=== PATIENT | female | born 1965 | race Caucasian/White ===

== ENCOUNTER 2016-08-12 15:14 | Emergency (ER) | payer MEDICARE, OTHER ==
[2016-08-12] MEDS ORDERED: DIATRIZOATE MEGLU/DIATRIZO SOD 30 ML BTL PO ONE (15:51)
[2016-08-12] MEDS ORDERED: DIATRIZOATE MEGLU/DIATRIZO SOD 30 ML BTL ONE (15:52)
--- NOTE | 2016-08-12 15:58 | ERNOTE ---
Medical Problem HPI - General Chief Complaint: Nausea/Vomiting Time Seen by Provider: 08/12/16 15:39 Source: patient, other - Immun/Allergies/Home Medications Immunizations: IMMUNIZATION HX Immunizations Up to Date Yes History of Influenza Vaccine Yes Hx Pneumococcal Vaccination Yes Allergies/Adverse Reactions: Allergies haloperidol Adverse Reaction (Severe, Verified 08/12/16 15:32) Other Home Medications: HOME MEDICATIONS Acetaminophen [Tylenol Extra Strength] 650 mg PO TID PRN 07/04/13 [Last Taken Unknown] Budesonide/Formoterol Fumarate [Symbicort 80-4.5 Mcg Inhaler] 2 puff IH BID [Last Taken 07/04/13] Omeprazole 20 mg PO DAILY 07/04/13 [Last Taken Unknown] Levothyroxine Sodium [Synthroid] 150 mcg PO DAILY@0700 #0 tablet 07/12/13 [Last Taken Unknown] Loratadine [Claritin] 10 mg PO DAILY #0 tablet 07/12/13 [Last Taken Unknown] Lurasidone HCl [Latuda] 120 mg PO DAILY #0 tablet 07/12/13 [Last Taken Unknown] Montelukast Sodium [Singulair] 10 mg PO DAILY #0 tablet 07/12/13 [Last Taken Unknown] Simvastatin [Zocor] 20 mg PO HS #0 tablet 07/12/13 [Last Taken Unknown] Carvedilol [Coreg] 25 mg PO BID 12/17/14 [Last Taken Unknown] Fluticasone Propionate [Flonase] 2 spray NS DAILY 12/17/14 [Last Taken Unknown] lamoTRIgine [Lamictal] 150 mg PO DAILY 12/17/14 [Last Taken Unknown] Acetaminophen [Tylenol] 650 mg PO Q4H PRN 01/22/15 [Last Taken Unknown] Cyclobenzaprine HCl 10 mg PO TID PRN 01/22/15 [Last Taken Unknown] Docusate Sodium [Colace] 100 mg PO BID PRN 01/22/15 [Last Taken Unknown] Fluticasone/Salmeterol [Advair 250-50 Diskus] 1 puff IH BID 01/22/15 [Last Taken Unknown] Ibuprofen [Motrin] 600 mg PO Q6H PRN 01/22/15 [Last Taken Unknown] Jantoven 4 mg PO SUTUWETHSA 01/22/15 [Last Taken Unknown] Jantoven 8 mg PO MOFR 01/22/15 [Last Taken Unknown] Jantoven 9 mg PO MOFR 01/22/15 [Last Taken Unknown] Abrams Carbonate 300 mg PO BID 01/22/15 [Last Taken Unknown] Lorazepam [Ativan] 2 mg PO QID PRN 01/22/15 [Last Taken Unknown] Magnesium Hydroxide [Milk Of Magnesia] 30 ml PO HS PRN 01/22/15 [Last Taken Unknown] Mometasone Furoate [Elocon] 15 gm TP BID PRN 01/22/15 [Last Taken Unknown] Ondansetron HCl [Zofran] 8 mg PO Q6H PRN 01/22/15 [Last Taken Unknown] Polyethylene Glycol 3350 [Miralax] 17 gm PO DAILY PRN 01/22/15 [Last Taken Unknown] Simethicone [Mylicon Chewable Tablets] 80 mg PO DAILY PRN 01/22/15 [Last Taken Unknown] Sodium Chloride [Valencia] 1 ml NS PRN PRN 01/22/15 [Last Taken Unknown] diphenhydrAMINE HCL [Benadryl] 25 mg PO BID PRN 01/22/15 [Last Taken Unknown] Albuterol Sulfate [Albuterol Sulfate 0.63 MG/3ML] 0.083 mg IH QID 08/12/16 [ Last Taken Unknown] Aspirin [Aspirin EC] 81 mg PO DAILY 08/12/16 [Last Taken Unknown] Bismuth Subsalicylate [Pepto-Bismol] 262 mg PO PRN PRN 08/12/16 [Last Taken Unknown] Clotrimazole [Lotrimin Cream] 1 appl TP BID 08/12/16 [Last Taken Unknown] Guaifenesin [Tussin Chest Congestion] 200 mg PO Q4H PRN 08/12/16 [Last Taken Unknown] Oxybutynin Chloride [Ditropan Xl] 5 mg PO BID 08/12/16 [Last Taken Unknown] Prazosin HCl [Minipress] 10 mg PO BID 08/12/16 [Last Taken Unknown] Quetiapine Fumarate [Seroquel Xr] 150 mg PO DAILY 08/12/16 [Last Taken Unknown] - History of Present History Narrative: Patient has had intermittent vomiting for about a week. She lives in a [facility] and has a tendency to copy other room mates and the staff thought at first that she was copying someone that had a colonoscopy. She last vomited yesterday , has kept broth down today but was afraid to eat anything else. She is constipated and has not had a bowel movement in a few days,complains of left sided abdominal pain She was seen in the walk-in clinic and discharged and then called later and told that she needed to be seen in the ER as her WBC was elevated. Review of Systems - Review of Systems Constitutional: Absent: recent illness, fever ENT: Absent: nose congestion, sore throat Respiratory: Absent: shortness of breath, cough Cardiology: Absent: chest pain Gastrointestinal/Abdominal: Present: nausea, vomiting, abdominal pain Genitourinary: Present: no symptoms reported Neurological: Absent: headache - Patient's Past Medical History Patient History - Medical: Hypothyroidism, Obesity, Other Patient History - Cardiac/Respiratory: Asthma, COPD, Deep Vein Thrombosis, Pulmonary Embolism Patient History - Surgical Procedures: No surgical history - Social History Living Situations: home Smoking Status: Never smoker Alcohol Use: none Physical Exam - Physical Exam General Appearance: Present: wd/wn, alert, no apparent distress, obese Respiratory: Present: no respiratory distress, normal breath sounds, no accessory muscle use, lungs clear Cardiovascular/Chest: Present: regular rate, rhythm, no murmur Gastrointestinal/Abdominal: Present: normal bowel sounds, nondistended, soft, tenderness - mild left sided, limited exam due to obesity Neurological Exam: Present: alert, normal mood/affect Skin Exam: Present: normal color, warm/dry ED Progress - Results and Orders Results and Orders: reviewed labs done in walk in clinic earlier today - Vital Signs Patient's Vital Signs:: I have reviewed the patient's vital signs. Vital Signs: Vital Signs 08/12/16 15:27 Temperature 37.0 C Pulse Rate 90 Respiratory 16 Rate Blood Pressure 117/82 O2 Sat by Pulse 95 Oximetry - CT/Ultrasound CT/Ultrasound Narrative: CT abdomen: no acute findings - Progress/Reassessment Chief Complaint: Nausea/Vomiting Progress Note-Subjective: 08/12/16 17:03 comfortable, tolerating contrast 08/12/16 18:43 patient comfortable, explained results urine culture pending from clinic no vomiting here Departure - Departure Clinical Impression: Abdominal pain Qualifiers: Abdominal location: unspecified location Qualified Code(s): R10.9 - Unspecified abdominal pain Disposition: Home self-care Condition: Good Instructions: Abdominal Pain, Adult, [id number] Additional Instructions: advance your diet as tolerated if your symptoms don't improve over the next couple days call your doctor for follow up Referrals: Master Elder DO [Staff Physician] -
[2016-08-12 17:05] VITALS: BP 112/71
== END 2016-08-12 18:57 | disposition home or self-care (01) ==
LOC: ER 15:14
DX: R10.9 Unspecified abdominal pain (principal); E03.9 Hypothyroidism, unspecified; Z86.718 Personal history of other venous thrombosis and embolism; Z86.711 Personal history of pulmonary embolism; J44.9 Chronic obstructive pulmonary disease, unspecified; J45.909 Unspecified asthma, uncomplicated

== ENCOUNTER 2017-06-04 07:09 | Day surgery (SDC) | payer MEDICARE, OTHER ==
[~2017-06-04 07:09] MED LIST: RINGER'S SOLUTION,LACTATED 1,000 ML IV PRN
[2017-06-04] MEDS ORDERED: RINGER'S SOLUTION,LACTATED 1,000 ML IV ONE (08:15)
[2017-06-04] MEDS ORDERED: RINGER'S SOLUTION,LACTATED 1,000 ML IV PRN (08:55)
[2017-06-04 09:50] VITALS: BP 133/73
--- NOTE | 2017-06-04 16:52 | OR ---
Operative Report - Dictated Report Narrative: OPERATIVE REPORT DATE OF OPERATION: 06/04/2017 PREOPERATIVE DIAGNOSIS: No prior dedicated colon studies POSTOPERATIVE DIAGNOSIS: Normal colonoscopy OPERATION: Colonoscopy SURGEON: Gurvinder Jauregui MD ANESTHESIA: MAC ELENITA JOHNSON CRNA INDICATIONS FOR PROCEDURE: The patient is a 51-year-old female referred by Dr. Elder. She has had no previous dedicated colon studies. There is no family history of colon cancer. She has a tendency to constipation. She was on Coumadin however that has been discontinued for the exam. FINDINGS: Somewhat capacious redundant colon, however normal exam to the cecum NARRATIVE OF PROCEDURE: The patient was identified in the holding area, and prior to the administration of anesthetic, a multidisciplinary timeout was observed. With the patient in the left lateral position and after the administration of intravenous sedation, the perineum was inspected. There was no evidence of pilonidal disease or skin breakdown. The external appearance of the anus was normal. Sphincter tone was good. The flexible fiberoptic colonoscope was inserted into the rectum which was insufflated with air. The rectal mucosa and submucosal vascular pattern appeared normal, the prep was seen to be complete. The scope was advanced through the sigmoid colon, up the descending colon, and around the splenic flexure where the triangular haustral architecture of the transverse colon was seen. The scope was advanced across the transverse colon, around the hepatic flexure to the cecum, where the confluence of tenia and the ileocecal valve were identified. The mucosa at this level appeared normal. The scope was then slowly withdrawn in a circular fashion so that all aspects of colonic mucosa were inspected. The colon was slightly capacious and caliber and redundant in course. The haustral architecture appeared well preserved throughout with no evidence of external compression. The mucosa and submucosal vascular pattern appeared normal, specifically there was no gross evidence to suggest colitis or inflammatory bowel disease and no AV malformations were seen. No diverticulosis was demonstrated. No polyps were encountered. The scope was gradually withdrawn to the level of the rectum. As much insufflated air as possible was removed. The scope was withdrawn from the patient and the procedure terminated. The patient tolerated the anesthetic and procedure well without complication and was transferred back to the ambulatory surgery area awake and in stable condition. The patient remained stable throughout a period of postoperative observation. She denied abdominal discomfort, was able to tolerate by mouth intake, and was up without assistance. I shared the operative findings with the patient, her mother, and her caregiver, and she was given copies of the photographs which appear in the medical record. She was discharged home with instructions not to engage in hazardous activity today, but may resume normal activity tomorrow, and advance diet as tolerated. She may restart Coumadin and is to continue those other medications as listed in the history and physical exam. A prescription for Benefiber 1 tablespoon once or twice daily was given to trial for constipation. RECOMMENDATION: Colon surveillance in 10 years depending upon findings and symptoms Reviewed and electronically signed
== END 2017-06-04 07:10 | disposition home or self-care (01) ==
LOC: AMB 07:09
PROVIDERS: ATTEND Surgery
PROC: 0DJD8ZZ Inspection of Lower Intestinal Tract, Via Natural or Artificial Opening Endoscopic (ICD-10-PCS; principal; 2017-06-04 08:00)
DX: Z12.11 Encounter for screening for malignant neoplasm of colon (principal); J45.20 Mild intermittent asthma, uncomplicated; J44.9 Chronic obstructive pulmonary disease, unspecified; K21.9 Gastro-esophageal reflux disease without esophagitis; E03.9 Hypothyroidism, unspecified; G47.33 Obstructive sleep apnea (adult) (pediatric); Z79.01 Long term (current) use of anticoagulants; Z86.711 Personal history of pulmonary embolism; Z86.718 Personal history of other venous thrombosis and embolism; Z68.43 Body mass index [BMI] 50.0-59.9, adult